=== PATIENT | male | born 1990 | race Caucasian/White ===

== ENCOUNTER 2017-11-01 14:01 | Outpatient (CLI) | payer BC ==
--- NOTE | 2017-11-01 14:31 | RAD ---
RIGHT HIP TWO VIEWS: History: Pain. Comparison: None. FINDINGS: Contour of the femoral head is maintained. No fracture. Joint space is preserved. IMPRESSION: Unremarkable right hip two views. POS: [facility]
--- NOTE | 2017-11-01 14:32 | RAD ---
TWO VIEWS RIGHT FEMUR: History: Pain. Comparison: None. FINDINGS: NO fracture. No cortical irregularilty. No periosteal reaction. IMPRESSION: Unremarkable two views right femur. POS: [facility]
== END 2017-11-01 14:02 | disposition home or self-care (01) ==
LOC: SCSRAD 14:01
PROVIDERS: ATTEND Nurse Practitioner Family
DX: M25.551 Pain in right hip (principal)